=== PATIENT | male | born 1970 | race Caucasian/White ===

== ENCOUNTER 2023-01-07 14:02 | Inpatient (IN) | payer OTHER ==
[2023-01-07 14:29] VITALS: BMI 36.9
[2023-01-07] MEDS ORDERED: NALOXONE HCL (KLOXXADO) 8 MG SPRAY NS PRN (15:25)
[2023-01-07] MEDS ORDERED: NICOTINE POLACRILEX 2 MG GUM BUC PRN (15:25)
[2023-01-07] MEDS ORDERED: POLYETHYLENE GLYCOL (HEALTHYLAX) 3350 17 GM PACKET PO PRN (15:25)
[2023-01-07] MEDS ORDERED: BENZOCAINE/MENTHOL (CHLORASEPTIC ) LOZENGE MM PRN (15:25)
[2023-01-07] MEDS ORDERED: MAGNESIUM HYDROX 2400MG/30ML ORAL SUSPENSION 30 ML CUP PO PRN (15:25)
[2023-01-07] MEDS ORDERED: guaiFENesin 600 MG TABLET.ER (FP) PO PRN (15:25)
[2023-01-07] MEDS ORDERED: LOPERAMIDE HCL 2 MG CAPSULE PO PRN (15:25)
[2023-01-07] MEDS ORDERED: P-EPHED 60MG/TRIPROLIDI 2.5MG TABLET PO PRN (15:25)
[2023-01-07] MEDS ORDERED: BENZONATATE 200 MG CAPSULE PO PRN (15:25)
[2023-01-07] MEDS ORDERED: NALOXONE HCL 0.4 MG/ML VIAL IM PRN (15:25)
[2023-01-07] MEDS ORDERED: MAG HYDROX/AL HYDROX/SIMETH 30 ML UNIT-DOSE CUP PO PRN (15:25)
[2023-01-07] MEDS ORDERED: ACETAMINOPHEN 325 MG TABLET (FP) PO PRN (15:25)
[2023-01-07] MEDS ORDERED: SENNOSIDES 8.6MG TABLET (FP) PO PRN (16:56)
[2023-01-07] MEDS ORDERED: [UNRECOGNIZED DRUG - OTHER] PO SCH (17:00)
[2023-01-07] MEDS ORDERED: POLYETHYLENE GLYCOL PO SCH (17:00)
[2023-01-07] MEDS: INSULIN SLIDING SCALE (NOVOLOG) 1 VIAL SQ SCH ×2 (21:50→22:29)
[2023-01-07] MEDS ORDERED: TUBERCULIN PPD 5 TU/0.1ML VIAL ID ONE (22:28)
[2023-01-07] MEDS: THIAMINE HCL 100 MG TABLET (FP) PO SCH (22:29)
[2023-01-07] MEDS: MELATONIN 5 MG TABLETS PO PRN (22:29)
[2023-01-07] MEDS: ATORVASTATIN CA 40 MG TABLET (FP) PO SCH (22:30)
[2023-01-07] MEDS: GABAPENTIN 100 MG CAPSULE PO SCH (22:30)
[2023-01-07] MEDS: APIXABAN 5 MG TABLET PO SCH (22:30)
[2023-01-07] MEDS: AMOX TR/POT CLAV 875MG/125MG TABLETS (FP) PO SCH (22:30)
[2023-01-08 01:01] LABS: PH,URINE 5.5 (5.0-8.0); URINE APPEARANCE CLEAR; URINE BILIRUBIN NEGATIVE (NEGATIVE); URINE COLOR YELLOW; URINE GLUCOSE (UA) NEGATIVE (NEGATIVE); URINE KETONE NEGATIVE (NEGATIVE); URINE LEUK ESTERASE NEGATIVE (NEGATIVE); URINE NITRITE NEGATIVE (NEGATIVE); URINE PROTEIN NEGATIVE (NEGATIVE); URINE UROBILINOGEN 0.2 mg/dL (0.2-1.0)
[2023-01-08] MEDS: GABAPENTIN 100 MG CAPSULE PO SCH ×3 (06:03→21:46)
[2023-01-08] MEDS: INSULIN SLIDING SCALE (NOVOLOG) 1 VIAL SQ SCH ×4 (06:03→21:50)
[2023-01-08] MEDS: methaDONE HCL 40 MG DISPERSABLE TABLET PO SCH (07:58)
[2023-01-08] MEDS: APIXABAN 5 MG TABLET PO SCH ×2 (09:51→21:46)
[2023-01-08] MEDS: AMOX TR/POT CLAV 875MG/125MG TABLETS (FP) PO SCH ×2 (09:51→21:46)
[2023-01-08] MEDS: POLYETHYLENE GLYCOL (HEALTHYLAX) 3350 17 GM PACKET PO SCH (09:51)
[2023-01-08] MEDS: LOSARTAN POTASSIUM 25 MG TABLET PO SCH (09:51)
[2023-01-08] MEDS: metoPROLOL SUCCINATE 25 MG TAB.SR.24H (FP) PO SCH (09:51)
[2023-01-08] MEDS: PRENATAL VITAMINS W/ FOLIC ACID TABLET (FP) PO SCH (09:51)
[2023-01-08] MEDS: ASPIRIN 81 MG CHEWABLE TABLETS PO SCH (09:51)
[2023-01-08] MEDS ORDERED: INSULIN SLIDING SCALE (NOVOLOG) 1 VIAL SQ ONE (12:01)
[2023-01-08] MEDS: ATORVASTATIN CA 40 MG TABLET (FP) PO SCH (21:46)
[2023-01-08] MEDS: THIAMINE HCL 100 MG TABLET (FP) PO SCH (21:46)
[2023-01-09] MEDS: methaDONE HCL 40 MG DISPERSABLE TABLET PO SCH (06:02)
[2023-01-09] MEDS: GABAPENTIN 100 MG CAPSULE PO SCH ×3 (06:03→21:35)
[2023-01-09] MEDS: INSULIN SLIDING SCALE (NOVOLOG) 1 VIAL SQ SCH ×4 (06:04→21:37)
[2023-01-09] MEDS: LOSARTAN POTASSIUM 25 MG TABLET PO SCH (09:47)
[2023-01-09] MEDS: ASPIRIN 81 MG CHEWABLE TABLETS PO SCH (09:47)
[2023-01-09] MEDS: POLYETHYLENE GLYCOL (HEALTHYLAX) 3350 17 GM PACKET PO SCH (09:47)
[2023-01-09] MEDS: AMOX TR/POT CLAV 875MG/125MG TABLETS (FP) PO SCH ×2 (09:47→21:36)
[2023-01-09] MEDS: PRENATAL VITAMINS W/ FOLIC ACID TABLET (FP) PO SCH (09:47)
[2023-01-09] MEDS: APIXABAN 5 MG TABLET PO SCH ×2 (09:47→21:36)
[2023-01-09] MEDS: metoPROLOL SUCCINATE 25 MG TAB.SR.24H (FP) PO SCH (09:47)
[2023-01-09] MEDS: ATORVASTATIN CA 40 MG TABLET (FP) PO SCH (21:35)
[2023-01-09] MEDS: THIAMINE HCL 100 MG TABLET (FP) PO SCH (21:36)
[2023-01-10] MEDS: methaDONE HCL 40 MG DISPERSABLE TABLET PO SCH (05:46)
[2023-01-10] MEDS: GABAPENTIN 100 MG CAPSULE PO SCH ×3 (05:46→21:21)
[2023-01-10] MEDS: INSULIN SLIDING SCALE (NOVOLOG) 1 VIAL SQ SCH ×4 (07:10→21:23)
[2023-01-10] MEDS: LOSARTAN POTASSIUM 25 MG TABLET PO SCH (09:54)
[2023-01-10] MEDS: AMOX TR/POT CLAV 875MG/125MG TABLETS (FP) PO SCH ×2 (09:54→21:21)
[2023-01-10] MEDS: ASPIRIN 81 MG CHEWABLE TABLETS PO SCH (09:54)
[2023-01-10] MEDS: APIXABAN 5 MG TABLET PO SCH ×2 (09:54→21:21)
[2023-01-10] MEDS: metoPROLOL SUCCINATE 25 MG TAB.SR.24H (FP) PO SCH (09:54)
[2023-01-10] MEDS: PRENATAL VITAMINS W/ FOLIC ACID TABLET (FP) PO SCH (09:54)
[2023-01-10] MEDS: POLYETHYLENE GLYCOL (HEALTHYLAX) 3350 17 GM PACKET PO SCH (09:54)
[2023-01-10] MEDS ORDERED: INSULIN SLIDING SCALE (NOVOLOG) 1 VIAL SQ ONE (11:50)
[2023-01-10] MEDS: THIAMINE HCL 100 MG TABLET (FP) PO SCH (21:21)
[2023-01-10] MEDS: ATORVASTATIN CA 40 MG TABLET (FP) PO SCH (21:21)
[2023-01-10] MEDS: MELATONIN 5 MG TABLETS PO PRN (21:22)
[2023-01-10] MEDS: NICOTINE 10 MG CARTRIDGE (INHALER) IH PRN (21:23)
[2023-01-11] MEDS: methaDONE HCL 40 MG DISPERSABLE TABLET PO SCH (06:00)
[2023-01-11] MEDS: GABAPENTIN 100 MG CAPSULE PO SCH ×3 (06:01→21:26)
[2023-01-11] MEDS: INSULIN SLIDING SCALE (NOVOLOG) 1 VIAL SQ SCH ×4 (06:02→22:10)
[2023-01-11] MEDS: PRENATAL VITAMINS W/ FOLIC ACID TABLET (FP) PO SCH (10:05)
[2023-01-11] MEDS: LOSARTAN POTASSIUM 25 MG TABLET PO SCH (10:05)
[2023-01-11] MEDS: AMOX TR/POT CLAV 875MG/125MG TABLETS (FP) PO SCH ×2 (10:05→21:26)
[2023-01-11] MEDS: APIXABAN 5 MG TABLET PO SCH ×2 (10:06→21:26)
[2023-01-11] MEDS: metoPROLOL SUCCINATE 25 MG TAB.SR.24H (FP) PO SCH (10:06)
[2023-01-11] MEDS: POLYETHYLENE GLYCOL (HEALTHYLAX) 3350 17 GM PACKET PO SCH (10:06)
[2023-01-11] MEDS: ASPIRIN 81 MG CHEWABLE TABLETS PO SCH (10:06)
[2023-01-11] MEDS: NICOTINE 10 MG CARTRIDGE (INHALER) IH PRN (16:38)
[2023-01-11] MEDS: ATORVASTATIN CA 40 MG TABLET (FP) PO SCH (21:26)
[2023-01-11] MEDS: THIAMINE HCL 100 MG TABLET (FP) PO SCH (21:26)
[2023-01-11] MEDS: MELATONIN 5 MG TABLETS PO PRN (21:27)
[2023-01-12] MEDS: GABAPENTIN 100 MG CAPSULE PO SCH ×3 (05:51→21:35)
[2023-01-12] MEDS: methaDONE HCL 40 MG DISPERSABLE TABLET PO SCH (05:51)
[2023-01-12] MEDS: INSULIN SLIDING SCALE (NOVOLOG) 1 VIAL SQ SCH ×4 (06:06→21:39)
[2023-01-12] MEDS: NICOTINE 10 MG CARTRIDGE (INHALER) IH PRN ×2 (06:50→13:12)
[2023-01-12] MEDS: POLYETHYLENE GLYCOL (HEALTHYLAX) 3350 17 GM PACKET PO SCH (09:59)
[2023-01-12] MEDS: LOSARTAN POTASSIUM 25 MG TABLET PO SCH (09:59)
[2023-01-12] MEDS: PRENATAL VITAMINS W/ FOLIC ACID TABLET (FP) PO SCH (09:59)
[2023-01-12] MEDS: ASPIRIN 81 MG CHEWABLE TABLETS PO SCH (09:59)
[2023-01-12] MEDS: metoPROLOL SUCCINATE 25 MG TAB.SR.24H (FP) PO SCH (09:59)
[2023-01-12] MEDS: APIXABAN 5 MG TABLET PO SCH ×2 (09:59→21:35)
[2023-01-12] MEDS: AMOX TR/POT CLAV 875MG/125MG TABLETS (FP) PO SCH ×2 (09:59→21:35)
[2023-01-12] MEDS ORDERED: INSULIN SLIDING SCALE (NOVOLOG) 1 VIAL SQ ONE (11:48)
[2023-01-12] MEDS: ATORVASTATIN CA 40 MG TABLET (FP) PO SCH (21:35)
[2023-01-12] MEDS: THIAMINE HCL 100 MG TABLET (FP) PO SCH (21:35)
[2023-01-12] MEDS: MELATONIN 5 MG TABLETS PO PRN (21:35)
[2023-01-13] MEDS: GABAPENTIN 100 MG CAPSULE PO SCH ×3 (06:00→21:16)
[2023-01-13] MEDS: methaDONE HCL 40 MG DISPERSABLE TABLET PO SCH (06:00)
[2023-01-13] MEDS: INSULIN SLIDING SCALE (NOVOLOG) 1 VIAL SQ SCH ×4 (06:03→21:19)
[2023-01-13] MEDS: NICOTINE 10 MG CARTRIDGE (INHALER) IH PRN ×3 (06:05→21:27)
[2023-01-13] MEDS: APIXABAN 5 MG TABLET PO SCH ×2 (09:44→21:16)
[2023-01-13] MEDS: ASPIRIN 81 MG CHEWABLE TABLETS PO SCH (09:44)
[2023-01-13] MEDS: PRENATAL VITAMINS W/ FOLIC ACID TABLET (FP) PO SCH (09:44)
[2023-01-13] MEDS: AMOX TR/POT CLAV 875MG/125MG TABLETS (FP) PO SCH ×2 (09:44→21:16)
[2023-01-13] MEDS: LOSARTAN POTASSIUM 25 MG TABLET PO SCH (09:44)
[2023-01-13] MEDS: metoPROLOL SUCCINATE 25 MG TAB.SR.24H (FP) PO SCH (09:44)
[2023-01-13] MEDS: POLYETHYLENE GLYCOL (HEALTHYLAX) 3350 17 GM PACKET PO SCH (09:44)
[2023-01-13] MEDS ORDERED: INSULIN SLIDING SCALE (NOVOLOG) 1 VIAL SQ ONE (11:47)
[2023-01-13] MEDS: MELATONIN 5 MG TABLETS PO PRN (21:16)
[2023-01-13] MEDS: THIAMINE HCL 100 MG TABLET (FP) PO SCH (21:16)
[2023-01-13] MEDS: ATORVASTATIN CA 40 MG TABLET (FP) PO SCH (21:16)
[2023-01-14] MEDS: methaDONE HCL 40 MG DISPERSABLE TABLET PO SCH (05:48)
[2023-01-14] MEDS: GABAPENTIN 100 MG CAPSULE PO SCH ×3 (05:48→22:00)
[2023-01-14] MEDS: INSULIN SLIDING SCALE (NOVOLOG) 1 VIAL SQ SCH ×7 (07:10→22:12)
[2023-01-14] MEDS: AMOX TR/POT CLAV 875MG/125MG TABLETS (FP) PO SCH ×2 (10:00→21:59)
[2023-01-14] MEDS: metoPROLOL SUCCINATE 25 MG TAB.SR.24H (FP) PO SCH (10:00)
[2023-01-14] MEDS: LOSARTAN POTASSIUM 25 MG TABLET PO SCH (10:01)
[2023-01-14] MEDS: APIXABAN 5 MG TABLET PO SCH ×2 (10:01→21:59)
[2023-01-14] MEDS: POLYETHYLENE GLYCOL (HEALTHYLAX) 3350 17 GM PACKET PO SCH (10:01)
[2023-01-14] MEDS: ASPIRIN 81 MG CHEWABLE TABLETS PO SCH (10:01)
[2023-01-14] MEDS: PRENATAL VITAMINS W/ FOLIC ACID TABLET (FP) PO SCH (10:01)
[2023-01-14] MEDS ORDERED: ONDANSETRON *ODT* 4 MG TABLET SL PRN (16:00)
[2023-01-14] MEDS: ATORVASTATIN CA 40 MG TABLET (FP) PO SCH (22:00)
[2023-01-14] MEDS: THIAMINE HCL 100 MG TABLET (FP) PO SCH (22:00)
[2023-01-15] MEDS: methaDONE HCL 40 MG DISPERSABLE TABLET PO SCH (05:42)
[2023-01-15] MEDS: GABAPENTIN 100 MG CAPSULE PO SCH ×3 (05:42→21:36)
[2023-01-15] MEDS: NICOTINE 10 MG CARTRIDGE (INHALER) IH PRN (06:39)
[2023-01-15] MEDS: INSULIN SLIDING SCALE (NOVOLOG) 1 VIAL SQ SCH ×4 (07:20→21:38)
[2023-01-15] MEDS: PRENATAL VITAMINS W/ FOLIC ACID TABLET (FP) PO SCH (09:39)
[2023-01-15] MEDS: POLYETHYLENE GLYCOL (HEALTHYLAX) 3350 17 GM PACKET PO SCH (09:39)
[2023-01-15] MEDS: ASPIRIN 81 MG CHEWABLE TABLETS PO SCH (09:40)
[2023-01-15] MEDS: metoPROLOL SUCCINATE 25 MG TAB.SR.24H (FP) PO SCH (09:40)
[2023-01-15] MEDS: AMOX TR/POT CLAV 875MG/125MG TABLETS (FP) PO SCH ×2 (09:40→21:36)
[2023-01-15] MEDS: LOSARTAN POTASSIUM 25 MG TABLET PO SCH (09:40)
[2023-01-15] MEDS: APIXABAN 5 MG TABLET PO SCH ×2 (09:40→21:36)
[2023-01-15 11:24] LABS: BASO % 1.1 % (0-2.0); EOS % 3.2 % (0-4.5); HEMATOCRIT 39.5 % (35.4-49); HEMOGLOBIN 13.6 GM/dL (11.7-16.9); LYMPH % 28.7 % (8-40); MCH 28.7 pg (25.7-33.7); MCHC 34.5 g/dl (32.0-35.9); MEAN CELL VOLUME 83.1 fl (80-96); PLATELET COUNT 310 10^3/uL (134-434); RBC 4.75 M/mm3 (4.00-5.60); RDW 14.5 % (11.9-15.9); WHITE BLOOD COUNT 10.4 K/mm3 (4.0-10.0)
[2023-01-15 11:27] LABS: ALBUMIN 3.3 g/dl (3.4-5.0); BLOOD UREA NITROGEN 31.1 mg/dL (7-18)
[2023-01-15 11:30] LABS: CREATININE 1.1 mg/dL (0.55-1.3)
[2023-01-15 11:32] LABS: BILIRUBIN,TOTAL 0.6 mg/dL (0.2-1); TOT PROT 8.1 g/dl (6.4-8.2)
[2023-01-15] MEDS ORDERED: INSULIN SLIDING SCALE (NOVOLOG) 1 VIAL SQ ONE (12:00)
[2023-01-15] MEDS: ATORVASTATIN CA 40 MG TABLET (FP) PO SCH (21:36)
[2023-01-15] MEDS: THIAMINE HCL 100 MG TABLET (FP) PO SCH (21:36)
[2023-01-16] MEDS: methaDONE HCL 40 MG DISPERSABLE TABLET PO SCH (06:12)
[2023-01-16] MEDS: INSULIN SLIDING SCALE (NOVOLOG) 1 VIAL SQ SCH ×4 (06:12→21:57)
[2023-01-16] MEDS: NICOTINE 10 MG CARTRIDGE (INHALER) IH PRN ×3 (06:14→21:53)
[2023-01-16] MEDS: GABAPENTIN 100 MG CAPSULE PO SCH ×3 (06:14→21:53)
[2023-01-16] MEDS: AMOX TR/POT CLAV 875MG/125MG TABLETS (FP) PO SCH ×2 (10:01→21:53)
[2023-01-16] MEDS: APIXABAN 5 MG TABLET PO SCH ×2 (10:02→21:53)
[2023-01-16] MEDS: PRENATAL VITAMINS W/ FOLIC ACID TABLET (FP) PO SCH (10:02)
[2023-01-16] MEDS: metoPROLOL SUCCINATE 25 MG TAB.SR.24H (FP) PO SCH (10:02)
[2023-01-16] MEDS: ASPIRIN 81 MG CHEWABLE TABLETS PO SCH (10:02)
[2023-01-16] MEDS: LOSARTAN POTASSIUM 25 MG TABLET PO SCH (10:02)
[2023-01-16] MEDS: POLYETHYLENE GLYCOL (HEALTHYLAX) 3350 17 GM PACKET PO SCH (10:03)
[2023-01-16] MEDS: THIAMINE HCL 100 MG TABLET (FP) PO SCH (21:53)
[2023-01-16] MEDS: ATORVASTATIN CA 40 MG TABLET (FP) PO SCH (21:53)
[2023-01-16] MEDS: SUVOREXANT 10 MG TABLET PO PRN (21:54)
[2023-01-17] MEDS: GABAPENTIN 100 MG CAPSULE PO SCH ×3 (05:54→21:48)
[2023-01-17] MEDS: methaDONE HCL 40 MG DISPERSABLE TABLET PO SCH (05:55)
[2023-01-17] MEDS: INSULIN SLIDING SCALE (NOVOLOG) 1 VIAL SQ SCH ×4 (07:07→21:53)
[2023-01-17] MEDS ORDERED: CALAMINE 8% TOPICAL LOTION 177 ML BOTTLE TP PRN (10:07)
[2023-01-17] MEDS: PRENATAL VITAMINS W/ FOLIC ACID TABLET (FP) PO SCH (10:14)
[2023-01-17] MEDS: ASPIRIN 81 MG CHEWABLE TABLETS PO SCH (10:14)
[2023-01-17] MEDS: LOSARTAN POTASSIUM 25 MG TABLET PO SCH (10:14)
[2023-01-17] MEDS: AMOX TR/POT CLAV 875MG/125MG TABLETS (FP) PO SCH (10:14)
[2023-01-17] MEDS: POLYETHYLENE GLYCOL (HEALTHYLAX) 3350 17 GM PACKET PO SCH (10:14)
[2023-01-17] MEDS: metoPROLOL SUCCINATE 25 MG TAB.SR.24H (FP) PO SCH (10:14)
[2023-01-17] MEDS: APIXABAN 5 MG TABLET PO SCH ×2 (10:14→21:48)
[2023-01-17] MEDS: NICOTINE 10 MG CARTRIDGE (INHALER) IH PRN ×2 (10:18→16:56)
[2023-01-17] MEDS ORDERED: INSULIN SLIDING SCALE (NOVOLOG) 1 VIAL SQ ONE (11:31)
[2023-01-17] MEDS: ATORVASTATIN CA 40 MG TABLET (FP) PO SCH (21:48)
[2023-01-17] MEDS: THIAMINE HCL 100 MG TABLET (FP) PO SCH (21:48)
[2023-01-17] MEDS: BACITRACIN ZINC 15 GM TUBE TOPICAL OINTMENT TP SCH (21:49)
[2023-01-17] MEDS: SUVOREXANT 10 MG TABLET PO PRN (21:49)
[2023-01-18] MEDS: methaDONE HCL 40 MG DISPERSABLE TABLET PO SCH (06:04)
[2023-01-18] MEDS: GABAPENTIN 100 MG CAPSULE PO SCH ×3 (06:06→21:55)
[2023-01-18] MEDS: INSULIN SLIDING SCALE (NOVOLOG) 1 VIAL SQ SCH ×4 (06:59→21:57)
[2023-01-18 09:10] VITALS: RESP 18
[2023-01-18] MEDS: PRENATAL VITAMINS W/ FOLIC ACID TABLET (FP) PO SCH (10:05)
[2023-01-18] MEDS: POLYETHYLENE GLYCOL (HEALTHYLAX) 3350 17 GM PACKET PO SCH (10:05)
[2023-01-18] MEDS: APIXABAN 5 MG TABLET PO SCH ×2 (10:06→21:55)
[2023-01-18] MEDS: LOSARTAN POTASSIUM 25 MG TABLET PO SCH (10:06)
[2023-01-18] MEDS: BACITRACIN ZINC 15 GM TUBE TOPICAL OINTMENT TP SCH ×2 (10:06→21:58)
[2023-01-18] MEDS: metoPROLOL SUCCINATE 25 MG TAB.SR.24H (FP) PO SCH (10:06)
[2023-01-18] MEDS: ASPIRIN 81 MG CHEWABLE TABLETS PO SCH (10:06)
[2023-01-18] MEDS: NICOTINE 10 MG CARTRIDGE (INHALER) IH PRN ×2 (11:52→16:53)
[2023-01-18] MEDS: THIAMINE HCL 100 MG TABLET (FP) PO SCH (21:55)
[2023-01-18] MEDS: ATORVASTATIN CA 40 MG TABLET (FP) PO SCH (21:55)
[2023-01-19] MEDS: methaDONE HCL 40 MG DISPERSABLE TABLET PO SCH (05:44)
[2023-01-19] MEDS: NICOTINE 10 MG CARTRIDGE (INHALER) IH PRN ×2 (05:44→10:26)
[2023-01-19] MEDS: GABAPENTIN 100 MG CAPSULE PO SCH ×3 (05:44→22:07)
[2023-01-19] MEDS: INSULIN SLIDING SCALE (NOVOLOG) 1 VIAL SQ SCH ×4 (06:25→22:08)
[2023-01-19] MEDS: PRENATAL VITAMINS W/ FOLIC ACID TABLET (FP) PO SCH (10:19)
[2023-01-19] MEDS: metoPROLOL SUCCINATE 25 MG TAB.SR.24H (FP) PO SCH (10:19)
[2023-01-19] MEDS: BACITRACIN ZINC 15 GM TUBE TOPICAL OINTMENT TP SCH ×2 (10:19→22:07)
[2023-01-19] MEDS: LOSARTAN POTASSIUM 25 MG TABLET PO SCH (10:19)
[2023-01-19] MEDS: APIXABAN 5 MG TABLET PO SCH ×2 (10:20→22:07)
[2023-01-19] MEDS: ASPIRIN 81 MG CHEWABLE TABLETS PO SCH (10:20)
[2023-01-19] MEDS: POLYETHYLENE GLYCOL (HEALTHYLAX) 3350 17 GM PACKET PO SCH (10:21)
[2023-01-19] MEDS: ATORVASTATIN CA 40 MG TABLET (FP) PO SCH (22:07)
[2023-01-19] MEDS: THIAMINE HCL 100 MG TABLET (FP) PO SCH (22:07)
[2023-01-20] MEDS: methaDONE HCL 40 MG DISPERSABLE TABLET PO SCH (05:42)
[2023-01-20] MEDS: NICOTINE 10 MG CARTRIDGE (INHALER) IH PRN ×3 (05:47→21:44)
[2023-01-20] MEDS: GABAPENTIN 100 MG CAPSULE PO SCH ×3 (05:47→21:39)
[2023-01-20] MEDS: INSULIN SLIDING SCALE (NOVOLOG) 1 VIAL SQ SCH ×4 (06:29→21:43)
[2023-01-20] MEDS: PRENATAL VITAMINS W/ FOLIC ACID TABLET (FP) PO SCH (10:18)
[2023-01-20] MEDS: metoPROLOL SUCCINATE 25 MG TAB.SR.24H (FP) PO SCH (10:19)
[2023-01-20] MEDS: ASPIRIN 81 MG CHEWABLE TABLETS PO SCH (10:19)
[2023-01-20] MEDS: LOSARTAN POTASSIUM 25 MG TABLET PO SCH (10:19)
[2023-01-20] MEDS: POLYETHYLENE GLYCOL (HEALTHYLAX) 3350 17 GM PACKET PO SCH (10:19)
[2023-01-20] MEDS: BACITRACIN ZINC 15 GM TUBE TOPICAL OINTMENT TP SCH ×2 (10:20→21:40)
[2023-01-20] MEDS: APIXABAN 5 MG TABLET PO SCH ×2 (10:20→21:39)
[2023-01-20] MEDS: ATORVASTATIN CA 40 MG TABLET (FP) PO SCH (21:39)
[2023-01-20] MEDS: THIAMINE HCL 100 MG TABLET (FP) PO SCH (21:40)
[2023-01-20] MEDS: SUVOREXANT 10 MG TABLET PO PRN (21:42)
[2023-01-21] MEDS: GABAPENTIN 100 MG CAPSULE PO SCH ×3 (06:10→21:36)
[2023-01-21] MEDS: NICOTINE 10 MG CARTRIDGE (INHALER) IH PRN ×4 (06:10→21:38)
[2023-01-21] MEDS: methaDONE HCL 40 MG DISPERSABLE TABLET PO SCH (06:11)
[2023-01-21] MEDS: INSULIN SLIDING SCALE (NOVOLOG) 1 VIAL SQ SCH ×4 (06:15→21:38)
[2023-01-21] MEDS: POLYETHYLENE GLYCOL (HEALTHYLAX) 3350 17 GM PACKET PO SCH (10:01)
[2023-01-21] MEDS: ASPIRIN 81 MG CHEWABLE TABLETS PO SCH (10:01)
[2023-01-21] MEDS: PRENATAL VITAMINS W/ FOLIC ACID TABLET (FP) PO SCH (10:01)
[2023-01-21] MEDS: APIXABAN 5 MG TABLET PO SCH ×2 (10:01→21:36)
[2023-01-21] MEDS: metoPROLOL SUCCINATE 25 MG TAB.SR.24H (FP) PO SCH (10:01)
[2023-01-21] MEDS: LOSARTAN POTASSIUM 25 MG TABLET PO SCH (10:02)
[2023-01-21] MEDS: BACITRACIN ZINC 15 GM TUBE TOPICAL OINTMENT TP SCH ×2 (10:02→21:38)
[2023-01-21] MEDS: THIAMINE HCL 100 MG TABLET (FP) PO SCH (21:36)
[2023-01-21] MEDS: ATORVASTATIN CA 40 MG TABLET (FP) PO SCH (21:36)
[2023-01-22] MEDS: GABAPENTIN 100 MG CAPSULE PO SCH ×3 (06:00→21:27)
[2023-01-22] MEDS: NICOTINE 10 MG CARTRIDGE (INHALER) IH PRN ×4 (06:00→21:31)
[2023-01-22] MEDS: methaDONE HCL 40 MG DISPERSABLE TABLET PO SCH (06:00)
[2023-01-22] MEDS: INSULIN SLIDING SCALE (NOVOLOG) 1 VIAL SQ SCH ×4 (06:04→21:30)
[2023-01-22] MEDS ORDERED: methaDONE HCL 10 MG TABLET PO SCH (10:15)
[2023-01-22] MEDS: POLYETHYLENE GLYCOL (HEALTHYLAX) 3350 17 GM PACKET PO SCH (10:25)
[2023-01-22] MEDS: PRENATAL VITAMINS W/ FOLIC ACID TABLET (FP) PO SCH (10:25)
[2023-01-22] MEDS: LOSARTAN POTASSIUM 25 MG TABLET PO SCH (10:25)
[2023-01-22] MEDS: ASPIRIN 81 MG CHEWABLE TABLETS PO SCH (10:25)
[2023-01-22] MEDS: metoPROLOL SUCCINATE 25 MG TAB.SR.24H (FP) PO SCH (10:25)
[2023-01-22] MEDS: APIXABAN 5 MG TABLET PO SCH ×2 (10:25→21:27)
[2023-01-22] MEDS: BACITRACIN ZINC 15 GM TUBE TOPICAL OINTMENT TP SCH ×2 (10:26→21:30)
[2023-01-22] MEDS: THIAMINE HCL 100 MG TABLET (FP) PO SCH (21:26)
[2023-01-22] MEDS: ATORVASTATIN CA 40 MG TABLET (FP) PO SCH (21:27)
[2023-01-22] MEDS: SUVOREXANT 15 MG TABLET PO PRN (21:28)
[2023-01-23] MEDS: GABAPENTIN 100 MG CAPSULE PO SCH ×3 (06:11→21:32)
[2023-01-23] MEDS: NICOTINE 10 MG CARTRIDGE (INHALER) IH PRN ×3 (06:11→21:35)
[2023-01-23] MEDS: methaDONE HCL 40 MG DISPERSABLE TABLET PO SCH (06:12)
[2023-01-23] MEDS: INSULIN SLIDING SCALE (NOVOLOG) 1 VIAL SQ SCH ×4 (06:15→21:35)
[2023-01-23] MEDS ORDERED: DOCUSATE SODIUM 100 MG CAPSULE (FP) PO PRN (09:20)
[2023-01-23] MEDS ORDERED: PANTOPRAZOLE 20 MG TABLET PO PRN (09:20)
[2023-01-23] MEDS: PRENATAL VITAMINS W/ FOLIC ACID TABLET (FP) PO SCH (10:03)
[2023-01-23] MEDS: LOSARTAN POTASSIUM 25 MG TABLET PO SCH (10:03)
[2023-01-23] MEDS: APIXABAN 5 MG TABLET PO SCH ×2 (10:03→21:32)
[2023-01-23] MEDS: ASPIRIN 81 MG CHEWABLE TABLETS PO SCH (10:03)
[2023-01-23] MEDS: metoPROLOL SUCCINATE 25 MG TAB.SR.24H (FP) PO SCH (10:04)
[2023-01-23] MEDS: POLYETHYLENE GLYCOL (HEALTHYLAX) 3350 17 GM PACKET PO SCH (10:04)
[2023-01-23] MEDS: COLLOIDAL OATMEAL 1 BAR EACH TP PRN (10:32)
[2023-01-23] MEDS: BACITRACIN ZINC 15 GM TUBE TOPICAL OINTMENT TP SCH ×2 (10:34→21:51)
[2023-01-23] MEDS ORDERED: INSULIN SLIDING SCALE (NOVOLOG) 1 VIAL SQ ONE (11:44)
[2023-01-23] MEDS: ATORVASTATIN CA 40 MG TABLET (FP) PO SCH (21:32)
[2023-01-23] MEDS: THIAMINE HCL 100 MG TABLET (FP) PO SCH (21:32)
[2023-01-23] MEDS: SUVOREXANT 15 MG TABLET PO PRN (21:33)
[2023-01-24] MEDS: methaDONE HCL 40 MG DISPERSABLE TABLET PO SCH (05:50)
[2023-01-24] MEDS: NICOTINE 10 MG CARTRIDGE (INHALER) IH PRN ×3 (05:50→21:38)
[2023-01-24] MEDS: INSULIN SLIDING SCALE (NOVOLOG) 1 VIAL SQ SCH ×4 (07:11→21:38)
[2023-01-24] MEDS: GABAPENTIN 100 MG CAPSULE PO SCH ×3 (07:11→21:37)
[2023-01-24] MEDS: PRENATAL VITAMINS W/ FOLIC ACID TABLET (FP) PO SCH (10:24)
[2023-01-24] MEDS: APIXABAN 5 MG TABLET PO SCH ×2 (10:25→21:37)
[2023-01-24] MEDS: ASPIRIN 81 MG CHEWABLE TABLETS PO SCH (10:25)
[2023-01-24] MEDS: metoPROLOL SUCCINATE 25 MG TAB.SR.24H (FP) PO SCH (10:25)
[2023-01-24] MEDS: LOSARTAN POTASSIUM 25 MG TABLET PO SCH (10:25)
[2023-01-24] MEDS: POLYETHYLENE GLYCOL (HEALTHYLAX) 3350 17 GM PACKET PO SCH (10:26)
[2023-01-24] MEDS: BACITRACIN ZINC 15 GM TUBE TOPICAL OINTMENT TP SCH ×2 (10:30→21:38)
[2023-01-24] MEDS: SUVOREXANT 15 MG TABLET PO PRN (21:36)
[2023-01-24] MEDS: ATORVASTATIN CA 40 MG TABLET (FP) PO SCH (21:37)
[2023-01-24] MEDS: THIAMINE HCL 100 MG TABLET (FP) PO SCH (21:37)
[2023-01-25] MEDS: GABAPENTIN 100 MG CAPSULE PO SCH ×3 (05:59→21:22)
[2023-01-25] MEDS: methaDONE HCL 40 MG DISPERSABLE TABLET PO SCH (06:00)
[2023-01-25] MEDS: INSULIN SLIDING SCALE (NOVOLOG) 1 VIAL SQ SCH ×4 (06:01→21:25)
[2023-01-25] MEDS: APIXABAN 5 MG TABLET PO SCH ×2 (09:55→21:22)
[2023-01-25] MEDS: LOSARTAN POTASSIUM 25 MG TABLET PO SCH (09:55)
[2023-01-25] MEDS: PRENATAL VITAMINS W/ FOLIC ACID TABLET (FP) PO SCH (09:55)
[2023-01-25] MEDS: metoPROLOL SUCCINATE 25 MG TAB.SR.24H (FP) PO SCH (09:55)
[2023-01-25] MEDS: ASPIRIN 81 MG CHEWABLE TABLETS PO SCH (09:55)
[2023-01-25] MEDS: POLYETHYLENE GLYCOL (HEALTHYLAX) 3350 17 GM PACKET PO SCH (09:56)
[2023-01-25] MEDS: BACITRACIN ZINC 15 GM TUBE TOPICAL OINTMENT TP SCH ×2 (09:56→21:23)
[2023-01-25] MEDS: NICOTINE 10 MG CARTRIDGE (INHALER) IH PRN (16:39)
[2023-01-25] MEDS: SUVOREXANT 15 MG TABLET PO PRN (21:19)
[2023-01-25] MEDS: ATORVASTATIN CA 40 MG TABLET (FP) PO SCH (21:22)
[2023-01-25] MEDS: THIAMINE HCL 100 MG TABLET (FP) PO SCH (21:22)
[2023-01-26] MEDS: GABAPENTIN 100 MG CAPSULE PO SCH ×3 (05:46→21:36)
[2023-01-26] MEDS: methaDONE HCL 40 MG DISPERSABLE TABLET PO SCH (05:46)
[2023-01-26] MEDS: NICOTINE 10 MG CARTRIDGE (INHALER) IH PRN ×3 (05:49→16:20)
[2023-01-26] MEDS: INSULIN SLIDING SCALE (NOVOLOG) 1 VIAL SQ SCH ×4 (06:25→21:37)
[2023-01-26] MEDS: metoPROLOL SUCCINATE 25 MG TAB.SR.24H (FP) PO SCH (09:50)
[2023-01-26] MEDS: PRENATAL VITAMINS W/ FOLIC ACID TABLET (FP) PO SCH (09:50)
[2023-01-26] MEDS: BACITRACIN ZINC 15 GM TUBE TOPICAL OINTMENT TP SCH ×2 (09:50→21:38)
[2023-01-26] MEDS: LOSARTAN POTASSIUM 25 MG TABLET PO SCH (09:50)
[2023-01-26] MEDS: POLYETHYLENE GLYCOL (HEALTHYLAX) 3350 17 GM PACKET PO SCH (09:50)
[2023-01-26] MEDS: APIXABAN 5 MG TABLET PO SCH ×2 (09:50→21:36)
[2023-01-26] MEDS: ASPIRIN 81 MG CHEWABLE TABLETS PO SCH (09:50)
[2023-01-26] MEDS ORDERED: INSULIN SLIDING SCALE (NOVOLOG) 1 VIAL SQ ONE (11:28)
[2023-01-26] MEDS: THIAMINE HCL 100 MG TABLET (FP) PO SCH (21:34)
[2023-01-26] MEDS: ATORVASTATIN CA 40 MG TABLET (FP) PO SCH (21:36)
[2023-01-27] MEDS: GABAPENTIN 100 MG CAPSULE PO SCH ×3 (05:48→23:04)
[2023-01-27] MEDS: methaDONE HCL 40 MG DISPERSABLE TABLET PO SCH (05:49)
[2023-01-27] MEDS: NICOTINE 10 MG CARTRIDGE (INHALER) IH PRN ×3 (05:50→16:37)
[2023-01-27] MEDS: INSULIN SLIDING SCALE (NOVOLOG) 1 VIAL SQ SCH ×4 (06:14→23:04)
[2023-01-27] MEDS: metoPROLOL SUCCINATE 25 MG TAB.SR.24H (FP) PO SCH (09:56)
[2023-01-27] MEDS: ASPIRIN 81 MG CHEWABLE TABLETS PO SCH (09:56)
[2023-01-27] MEDS: PRENATAL VITAMINS W/ FOLIC ACID TABLET (FP) PO SCH (09:56)
[2023-01-27] MEDS: POLYETHYLENE GLYCOL (HEALTHYLAX) 3350 17 GM PACKET PO SCH (09:56)
[2023-01-27] MEDS: BACITRACIN ZINC 15 GM TUBE TOPICAL OINTMENT TP SCH ×2 (09:56→23:03)
[2023-01-27] MEDS: LOSARTAN POTASSIUM 25 MG TABLET PO SCH (09:56)
[2023-01-27] MEDS: APIXABAN 5 MG TABLET PO SCH ×2 (09:56→23:03)
[2023-01-27] MEDS: COLLOIDAL OATMEAL 1 BAR EACH TP PRN (09:59)
[2023-01-27] MEDS ORDERED: INSULIN SLIDING SCALE (NOVOLOG) 1 VIAL SQ ONE (11:41)
[2023-01-27] MEDS: ATORVASTATIN CA 40 MG TABLET (FP) PO SCH (23:04)
[2023-01-27] MEDS: THIAMINE HCL 100 MG TABLET (FP) PO SCH (23:04)
[2023-01-28] MEDS: GABAPENTIN 100 MG CAPSULE PO SCH (05:40)
[2023-01-28] MEDS: methaDONE HCL 40 MG DISPERSABLE TABLET PO SCH (05:40)
[2023-01-28 07:04] VITALS: BP 114/64; PULSE 79; TEMP 97.3
[2023-01-28] MEDS: INSULIN SLIDING SCALE (NOVOLOG) 1 VIAL SQ SCH (07:10)
== END 2023-01-28 08:16 | disposition home or self-care (01) | DRG 772 ==
LOC: YASAS 14:02 → Y3W 20:09
PROVIDERS: ADMIT Allergy & Immunology; ATTEND Psychiatry & Neurology Pain Medicine
PROC: HZ42ZZZ Group Counseling for Substance Abuse Treatment, Cognitive-Behavioral (ICD-10-PCS; principal; 2023-01-07)
DX: F14.20 Cocaine dependence, uncomplicated (principal); F11.20 Opioid dependence, uncomplicated; F17.210 Nicotine dependence, cigarettes, uncomplicated; E11.9 Type 2 diabetes mellitus without complications; Z79.84 Long term (current) use of oral hypoglycemic drugs; K59.00 Constipation, unspecified; L85.3 Xerosis cutis; R21 Rash and other nonspecific skin eruption; Z86.718 Personal history of other venous thrombosis and embolism; Z79.01 Long term (current) use of anticoagulants; Z99.89 Dependence on other enabling machines and devices; Z86.19 Personal history of other infectious and parasitic diseases
CPT/HCPCS: 36415; 80053; 81003; 82962; 85025; 93005; 93010; C9803-CS; U0003; U0005

== ENCOUNTER 2023-03-22 17:30 | Inpatient (IN) | payer OTHER ==
[2023-03-22 18:37] VITALS: BMI 37.2
[2023-03-22] MEDS ORDERED: COLLOIDAL OATMEAL 1 BAR EACH TP PRN (21:48)
[2023-03-22] MEDS ORDERED: NALOXONE HCL (KLOXXADO) 8 MG SPRAY NS PRN (21:48)
[2023-03-22] MEDS ORDERED: guaiFENesin 600 MG TABLET.ER (FP) PO PRN (21:48)
[2023-03-22] MEDS ORDERED: POLYETHYLENE GLYCOL (HEALTHYLAX) 3350 17 GM PACKET PO PRN (21:48)
[2023-03-22] MEDS ORDERED: hydrOXYzine PAMOATE 25 MG CAPSULE (FP) PO PRN (21:48)
[2023-03-22] MEDS ORDERED: AMMONIUM LACTATE 12% LOTION 225 GM BOTTLE TP PRN (21:48)
[2023-03-22] MEDS ORDERED: ACETAMINOPHEN 325 MG TABLET (FP) PO PRN (21:48)
[2023-03-22] MEDS ORDERED: MAGNESIUM HYDROX 2400MG/30ML ORAL SUSPENSION 30 ML CUP PO PRN (21:48)
[2023-03-22] MEDS ORDERED: NALOXONE HCL 0.4 MG/ML VIAL IM PRN (21:48)
[2023-03-22] MEDS ORDERED: LOPERAMIDE HCL 2 MG CAPSULE PO PRN (21:48)
[2023-03-22] MEDS ORDERED: NICOTINE POLACRILEX 2 MG GUM BUC PRN (21:48)
[2023-03-22] MEDS ORDERED: MAG HYDROX/AL HYDROX/SIMETH 30 ML UNIT-DOSE CUP PO PRN (21:48)
[2023-03-22] MEDS ORDERED: BENZOCAINE/MENTHOL (CHLORASEPTIC ) LOZENGE MM PRN (21:48)
[2023-03-22] MEDS ORDERED: BENZONATATE 200 MG CAPSULE PO PRN (21:48)
[2023-03-22] MEDS ORDERED: MELATONIN 5 MG TABLETS ONE (23:44)
[2023-03-22] MEDS: THIAMINE HCL 100 MG TABLET (FP) PO SCH (23:52)
[2023-03-22] MEDS: APIXABAN 5 MG TABLET PO SCH (23:52)
[2023-03-22] MEDS: MELATONIN 5 MG TABLETS PO SCH (23:53)
[2023-03-23] MEDS: PRENATAL VITAMINS W/ FOLIC ACID TABLET (FP) PO SCH (10:19)
[2023-03-23] MEDS: APIXABAN 5 MG TABLET PO SCH ×2 (10:19→22:50)
[2023-03-23] MEDS: NICOTINE 14 MG/24 HOURS TOPICAL PATCH TD SCH (10:19)
[2023-03-23] MEDS ORDERED: methaDONE HCL 40 MG DISPERSABLE TABLET PO ONE (10:30)
[2023-03-23 10:54] LABS: POTASSIUM 4.1 mmol/L (3.5-5.1)
[2023-03-23 11:02] LABS: HEMATOCRIT 39.9 % (35.4-49); MCH 27.7 pg (25.7-33.7); MCHC 32.6 g/dl (32.0-35.9); MEAN CELL VOLUME 85.1 fl (80-96); MEAN PLT VOLUME 8.7 fl (7.5-11.1); PLATELET COUNT 257 10^3/uL (134-434); RBC 4.68 M/mm3 (4.00-5.60); WHITE BLOOD COUNT 7.8 K/mm3 (4.0-10.0)
[2023-03-23 11:07] LABS: CALCIUM 8.6 mg/dL (8.5-10.1)
[2023-03-23 11:08] LABS: ALBUMIN 3.2 g/dl (3.4-5.0); BLOOD UREA NITROGEN 13.9 mg/dL (7-18)
[2023-03-23 11:11] LABS: CREATININE 1.2 mg/dL (0.55-1.3)
[2023-03-23 11:12] LABS: BILIRUBIN,TOTAL 0.8 mg/dL (0.2-1); TOT PROT 7.7 g/dl (6.4-8.2)
[2023-03-23 12:58] LABS: SYPHILIS W/ RPR CONF REACTIVE (NONREACTIVE)
[2023-03-23] MEDS: MELATONIN 5 MG TABLETS PO SCH (22:50)
[2023-03-23] MEDS: THIAMINE HCL 100 MG TABLET (FP) PO SCH (22:50)
[2023-03-24] MEDS: methaDONE HCL 40 MG DISPERSABLE TABLET PO SCH (05:39)
[2023-03-24] MEDS: PRENATAL VITAMINS W/ FOLIC ACID TABLET (FP) PO SCH (09:54)
[2023-03-24] MEDS: APIXABAN 5 MG TABLET PO SCH ×2 (09:54→22:55)
[2023-03-24] MEDS: NICOTINE 14 MG/24 HOURS TOPICAL PATCH TD SCH (10:14)
[2023-03-24] MEDS: MELATONIN 5 MG TABLETS PO SCH (22:50)
[2023-03-24] MEDS: THIAMINE HCL 100 MG TABLET (FP) PO SCH (22:50)
[2023-03-25] MEDS: methaDONE HCL 40 MG DISPERSABLE TABLET PO SCH (05:49)
[2023-03-25] MEDS: PRENATAL VITAMINS W/ FOLIC ACID TABLET (FP) PO SCH (10:01)
[2023-03-25] MEDS: APIXABAN 5 MG TABLET PO SCH ×2 (10:02→21:57)
[2023-03-25] MEDS: NICOTINE 14 MG/24 HOURS TOPICAL PATCH TD SCH (10:02)
[2023-03-25] MEDS: GABAPENTIN 100 MG CAPSULE PO SCH ×2 (13:48→21:57)
[2023-03-25] MEDS: metoPROLOL SUCCINATE 25 MG TAB.SR.24H (FP) PO SCH (13:50)
[2023-03-25] MEDS: ASPIRIN 81 MG CHEWABLE TABLETS PO SCH (13:50)
[2023-03-25] MEDS: LOSARTAN POTASSIUM 25 MG TABLET PO SCH (13:51)
[2023-03-25 14:58] LABS: URINE APPEARANCE CLEAR; URINE BILIRUBIN NEGATIVE (NEGATIVE); URINE COLOR YELLOW; URINE GLUCOSE (UA) NEGATIVE (NEGATIVE); URINE KETONE NEGATIVE (NEGATIVE); URINE LEUK ESTERASE NEGATIVE (NEGATIVE); URINE NITRITE NEGATIVE (NEGATIVE); URINE PROTEIN TRACE (NEGATIVE)
[2023-03-25] MEDS: MELATONIN 5 MG TABLETS PO SCH (21:57)
[2023-03-25] MEDS: THIAMINE HCL 100 MG TABLET (FP) PO SCH (21:57)
[2023-03-25] MEDS: ATORVASTATIN CA 40 MG TABLET (FP) PO SCH (21:58)
[2023-03-25] MEDS: SENNOSIDES 8.6MG TABLET (FP) PO SCH (21:58)
[2023-03-26] MEDS: GABAPENTIN 100 MG CAPSULE PO SCH ×3 (06:40→21:23)
[2023-03-26] MEDS: methaDONE HCL 40 MG DISPERSABLE TABLET PO SCH (06:40)
[2023-03-26 08:49] VITALS: RESP 18
[2023-03-26] MEDS: NICOTINE 10 MG CARTRIDGE (INHALER) IH SCH ×2 (09:16→10:07)
[2023-03-26] MEDS: APIXABAN 5 MG TABLET PO SCH ×2 (10:06→21:24)
[2023-03-26] MEDS: ASPIRIN 81 MG CHEWABLE TABLETS PO SCH (10:06)
[2023-03-26] MEDS: metoPROLOL SUCCINATE 25 MG TAB.SR.24H (FP) PO SCH (10:06)
[2023-03-26] MEDS: LOSARTAN POTASSIUM 25 MG TABLET PO SCH (10:06)
[2023-03-26] MEDS: NICOTINE 14 MG/24 HOURS TOPICAL PATCH TD SCH (10:07)
[2023-03-26] MEDS: PRENATAL VITAMINS W/ FOLIC ACID TABLET (FP) PO SCH (10:07)
[2023-03-26] MEDS: THIAMINE HCL 100 MG TABLET (FP) PO SCH (21:23)
[2023-03-26] MEDS: MELATONIN 5 MG TABLETS PO SCH (21:23)
[2023-03-26] MEDS: ATORVASTATIN CA 40 MG TABLET (FP) PO SCH (21:24)
[2023-03-26] MEDS: SENNOSIDES 8.6MG TABLET (FP) PO SCH (21:24)
[2023-03-27] MEDS: GABAPENTIN 100 MG CAPSULE PO SCH ×3 (05:54→21:33)
[2023-03-27] MEDS: NICOTINE 10 MG CARTRIDGE (INHALER) IH PRN ×2 (05:54→16:30)
[2023-03-27] MEDS: methaDONE HCL 40 MG DISPERSABLE TABLET PO SCH (05:54)
[2023-03-27] MEDS: LOSARTAN POTASSIUM 25 MG TABLET PO SCH (10:27)
[2023-03-27] MEDS: ASPIRIN 81 MG CHEWABLE TABLETS PO SCH (10:27)
[2023-03-27] MEDS: APIXABAN 5 MG TABLET PO SCH ×2 (10:27→21:33)
[2023-03-27] MEDS: metoPROLOL SUCCINATE 25 MG TAB.SR.24H (FP) PO SCH (10:27)
[2023-03-27] MEDS: PRENATAL VITAMINS W/ FOLIC ACID TABLET (FP) PO SCH (10:27)
[2023-03-27] MEDS: NICOTINE 14 MG/24 HOURS TOPICAL PATCH TD SCH (10:28)
[2023-03-27] MEDS: BACITRACIN 0.9 GM PACKET TP SCH ×2 (15:36→21:34)
[2023-03-27] MEDS: INSULIN SLIDING SCALE (NOVOLOG) 1 VIAL SQ SCH (16:29)
[2023-03-27] MEDS ORDERED: INSULIN SLIDING SCALE (NOVOLOG) 1 VIAL SQ SCH (16:30)
[2023-03-27] MEDS: ATORVASTATIN CA 40 MG TABLET (FP) PO SCH (21:33)
[2023-03-27] MEDS: THIAMINE HCL 100 MG TABLET (FP) PO SCH (21:33)
[2023-03-27] MEDS: MELATONIN 5 MG TABLETS PO SCH (21:33)
[2023-03-27] MEDS: SENNOSIDES 8.6MG TABLET (FP) PO SCH (21:34)
[2023-03-27] MEDS ORDERED: BACITRACIN 0.9 GM PACKET TP SCH (22:00)
[2023-03-28] MEDS: NICOTINE 10 MG CARTRIDGE (INHALER) IH PRN (06:11)
[2023-03-28] MEDS: GABAPENTIN 100 MG CAPSULE PO SCH ×3 (06:11→21:46)
[2023-03-28] MEDS: methaDONE HCL 40 MG DISPERSABLE TABLET PO SCH (06:11)
[2023-03-28] MEDS: INSULIN SLIDING SCALE (NOVOLOG) 1 VIAL SQ SCH ×2 (07:06→16:36)
[2023-03-28] MEDS: BACITRACIN 0.9 GM PACKET TP SCH ×2 (09:35→21:47)
[2023-03-28] MEDS: NICOTINE 14 MG/24 HOURS TOPICAL PATCH TD SCH (09:36)
[2023-03-28] MEDS: PRENATAL VITAMINS W/ FOLIC ACID TABLET (FP) PO SCH (09:36)
[2023-03-28] MEDS: metoPROLOL SUCCINATE 25 MG TAB.SR.24H (FP) PO SCH (09:36)
[2023-03-28] MEDS: APIXABAN 5 MG TABLET PO SCH ×2 (09:36→21:47)
[2023-03-28] MEDS: ASPIRIN 81 MG CHEWABLE TABLETS PO SCH (09:36)
[2023-03-28] MEDS: LOSARTAN POTASSIUM 25 MG TABLET PO SCH (09:36)
[2023-03-28] MEDS: THIAMINE HCL 100 MG TABLET (FP) PO SCH (21:46)
[2023-03-28] MEDS: MELATONIN 5 MG TABLETS PO SCH (21:46)
[2023-03-28] MEDS: SENNOSIDES 8.6MG TABLET (FP) PO SCH (21:47)
[2023-03-28] MEDS: ATORVASTATIN CA 40 MG TABLET (FP) PO SCH (21:47)
[2023-03-29] MEDS: methaDONE HCL 40 MG DISPERSABLE TABLET PO SCH (05:57)
[2023-03-29] MEDS: GABAPENTIN 100 MG CAPSULE PO SCH (05:58)
[2023-03-29] MEDS: NICOTINE 10 MG CARTRIDGE (INHALER) IH PRN (06:00)
[2023-03-29 07:29] VITALS: BP 138/50; PULSE 75; TEMP 97.1
[2023-03-29] MEDS: INSULIN SLIDING SCALE (NOVOLOG) 1 VIAL SQ SCH (07:37)
[2023-03-29] MEDS: BACITRACIN 0.9 GM PACKET TP SCH (09:51)
[2023-03-29] MEDS: LOSARTAN POTASSIUM 25 MG TABLET PO SCH (09:51)
[2023-03-29] MEDS: ASPIRIN 81 MG CHEWABLE TABLETS PO SCH (09:51)
[2023-03-29] MEDS: PRENATAL VITAMINS W/ FOLIC ACID TABLET (FP) PO SCH (09:51)
[2023-03-29] MEDS: APIXABAN 5 MG TABLET PO SCH (09:52)
[2023-03-29] MEDS: metoPROLOL SUCCINATE 25 MG TAB.SR.24H (FP) PO SCH (09:52)
[2023-03-29] MEDS: NICOTINE 14 MG/24 HOURS TOPICAL PATCH TD SCH (09:53)
== END 2023-03-29 10:38 | disposition home or self-care (01) | DRG 773 ==
LOC: YASAS 17:30 → Y3W 22:35
PROVIDERS: ADMIT Allergy & Immunology; ATTEND Psychiatry & Neurology Pain Medicine
DX: F14.20 Cocaine dependence, uncomplicated (principal); F11.20 Opioid dependence, uncomplicated; F17.210 Nicotine dependence, cigarettes, uncomplicated; D68.59 Other primary thrombophilia; Z79.01 Long term (current) use of anticoagulants; K59.03 Drug induced constipation; L98.8 Other specified disorders of the skin and subcutaneous tissue; E11.9 Type 2 diabetes mellitus without complications; Z79.84 Long term (current) use of oral hypoglycemic drugs; Z86.19 Personal history of other infectious and parasitic diseases; Z99.89 Dependence on other enabling machines and devices
CPT/HCPCS: 36415; 80053; 81003; 82962; 85027; 86593; 86780; 86803; 87522; 87635; 93005; 93010

== ENCOUNTER 2023-07-03 15:10 | Inpatient (IN) | payer OTHER ==
[2023-07-03 17:21] VITALS: BMI 43.5
[2023-07-03] MEDS ORDERED: MAG HYDROX/AL HYDROX/SIMETH 30 ML UNIT-DOSE CUP PO PRN (18:41)
[2023-07-03] MEDS ORDERED: hydrOXYzine PAMOATE 25 MG CAPSULE (FP) PO PRN (18:41)
[2023-07-03] MEDS ORDERED: BISMUTH SUBSALICYLATE 524 MG/30 ML PO PRN (18:41)
[2023-07-03] MEDS ORDERED: IBUPROFEN 600 MG TABLET (FP) PO PRN (18:41)
[2023-07-03] MEDS ORDERED: IBUPROFEN 400 MG TABLET (FP) PO PRN (18:41)
[2023-07-03] MEDS ORDERED: ONDANSETRON *ODT* 4 MG TABLET SL PRN (18:41)
[2023-07-03] MEDS ORDERED: NALOXONE HCL 0.4 MG/ML VIAL IM PRN (18:41)
[2023-07-03] MEDS ORDERED: MAGNESIUM HYDROX 2400MG/30ML ORAL SUSPENSION 30 ML CUP PO PRN (18:41)
[2023-07-03] MEDS ORDERED: BENZOCAINE/MENTHOL (CHLORASEPTIC ) LOZENGE MM PRN (18:41)
[2023-07-03] MEDS ORDERED: POLYETHYLENE GLYCOL (HEALTHYLAX) 3350 17 GM PACKET PO PRN (18:41)
[2023-07-03] MEDS ORDERED: LOPERAMIDE HCL 2 MG CAPSULE PO PRN (18:41)
[2023-07-03] MEDS ORDERED: DICYCLOMINE HCL 10 MG CAPSULE PO PRN (18:41)
[2023-07-03] MEDS ORDERED: guaiFENesin 600 MG TABLET.ER (FP) PO PRN (18:41)
[2023-07-03] MEDS ORDERED: METHOCARBAMOL 500 MG TABLET PO PRN (18:41)
[2023-07-03] MEDS ORDERED: BENZONATATE 200 MG CAPSULE PO PRN (18:41)
[2023-07-03] MEDS ORDERED: NALOXONE HCL (KLOXXADO) 8 MG SPRAY NS PRN (18:41)
[2023-07-03] MEDS: MELATONIN 5 MG TABLETS PO SCH (22:58)
[2023-07-03] MEDS: ATORVASTATIN CA 40 MG TABLET (FP) PO SCH (22:58)
[2023-07-03] MEDS: APIXABAN 5 MG TABLET PO SCH (22:58)
[2023-07-03] MEDS: THIAMINE HCL 100 MG TABLET (FP) PO SCH (22:58)
[2023-07-04] MEDS ORDERED: diazePAM 5 MG TABLET PO PRN (09:42)
[2023-07-04] MEDS: metoPROLOL SUCCINATE 25 MG TAB.SR.24H (FP) PO SCH (10:05)
[2023-07-04] MEDS: PRENATAL VITAMINS W/ FOLIC ACID TABLET (FP) PO SCH (10:05)
[2023-07-04] MEDS: diazePAM 5 MG TABLET PO SCH ×3 (10:05→22:37)
[2023-07-04] MEDS: APIXABAN 5 MG TABLET PO SCH ×2 (10:05→22:36)
[2023-07-04] MEDS: LOSARTAN POTASSIUM 25 MG TABLET PO SCH (10:05)
[2023-07-04] MEDS: methaDONE HCL 40 MG DISPERSABLE TABLET PO SCH (10:20)
[2023-07-04] MEDS: ACETAMINOPHEN 325 MG TABLET (FP) PO PRN ×2 (10:23→17:30)
[2023-07-04 10:38] LABS: HEMATOCRIT 38.3 % (35.4-49); HEMOGLOBIN 12.8 GM/dL (11.7-16.9); MCH 28.1 pg (25.7-33.7); MCHC 33.3 g/dl (32.0-35.9); MEAN CELL VOLUME 84.4 fl (80-96); PLATELET COUNT 190 10^3/uL (134-434); RBC 4.54 M/mm3 (4.00-5.60); RDW 14.8 % (11.9-15.9); WHITE BLOOD COUNT 8.2 K/mm3 (4.0-10.0)
[2023-07-04 11:33] LABS: CHLORIDE 99 mmol/L (98-107); POTASSIUM 4.8 mmol/L (3.5-5.1); SODIUM 133 mmol/L (136-145)
[2023-07-04 11:37] LABS: ALBUMIN 3.4 g/dl (3.4-5.0); ANION GAP 9 MMOL/L (8-16); BLOOD UREA NITROGEN 18.6 mg/dL (7-18); CALCIUM 8.8 mg/dL (8.5-10.1); CO2 25 mmol/L (21-32)
[2023-07-04 11:40] LABS: CREATININE 1.4 mg/dL (0.55-1.3); SGOT/AST 21 U/L (15-37); SGPT/ALT 25 U/L (13-61)
[2023-07-04 11:42] LABS: ALK PHOS 161 U/L (45-117); BILIRUBIN,TOTAL 0.7 mg/dL (0.2-1); TOT PROT 7.8 g/dl (6.4-8.2)
[2023-07-04] MEDS: BENZOCAINE 20 % GEL TUBE MM PRN ×2 (13:32→22:57)
[2023-07-04 14:46] LABS: GLUCOSE,RANDOM 540 mg/dL (74-106)
[2023-07-04] MEDS ORDERED: INSULIN (NOVOLOG) ASPART 100 UNITS/ML 10ML VIAL SQ ONE ×2 (15:12→16:50)
[2023-07-04] MEDS ORDERED: INSULIN SLIDING SCALE (NOVOLOG) 1 VIAL SQ ONE (15:15)
[2023-07-04] MEDS: INSULIN SLIDING SCALE (NOVOLOG) 1 VIAL SQ SCH (17:29)
[2023-07-04] MEDS: ATORVASTATIN CA 40 MG TABLET (FP) PO SCH (22:36)
[2023-07-04] MEDS: MELATONIN 5 MG TABLETS PO SCH (22:36)
[2023-07-04] MEDS: THIAMINE HCL 100 MG TABLET (FP) PO SCH (22:36)
[2023-07-05] MEDS: methaDONE HCL 40 MG DISPERSABLE TABLET PO SCH (05:54)
[2023-07-05] MEDS: diazePAM 5 MG TABLET PO SCH ×4 (05:54→22:37)
[2023-07-05] MEDS: INSULIN SLIDING SCALE (NOVOLOG) 1 VIAL SQ SCH ×3 (06:58→17:06)
[2023-07-05] MEDS: metoPROLOL SUCCINATE 25 MG TAB.SR.24H (FP) PO SCH (10:04)
[2023-07-05] MEDS: PRENATAL VITAMINS W/ FOLIC ACID TABLET (FP) PO SCH (10:04)
[2023-07-05] MEDS: APIXABAN 5 MG TABLET PO SCH ×2 (10:04→22:36)
[2023-07-05] MEDS: LOSARTAN POTASSIUM 25 MG TABLET PO SCH (10:06)
[2023-07-05] MEDS: ACETAMINOPHEN 325 MG TABLET (FP) PO PRN (17:09)
[2023-07-05 19:44] VITALS: BP 126/70; PULSE 80; RESP 18; TEMP 97.7
[2023-07-05] MEDS ORDERED: INSULIN (LEVEMIR) 100 UNITS/ML UNITS SQ SCH (22:00)
[2023-07-05] MEDS: ATORVASTATIN CA 40 MG TABLET (FP) PO SCH (22:37)
[2023-07-05] MEDS: MELATONIN 5 MG TABLETS PO SCH (22:37)
[2023-07-05] MEDS: THIAMINE HCL 100 MG TABLET (FP) PO SCH (22:37)
[2023-07-06] MEDS: methaDONE HCL 40 MG DISPERSABLE TABLET PO SCH (06:00)
[2023-07-06] MEDS ORDERED: diazePAM 5 MG TABLET PO SCH (06:00)
[2023-07-06] MEDS: INSULIN SLIDING SCALE (NOVOLOG) 1 VIAL SQ SCH (07:10)
[2023-07-07] MEDS ORDERED: diazePAM 5 MG TABLET PO SCH (06:00)
[2023-07-08] MEDS ORDERED: diazePAM 5 MG TABLET PO ONE (06:00)
== END 2023-07-05 23:55 | disposition short-term general hospital (02) | DRG 773 ==
LOC: YASAS 15:10 → Y3N 19:36
PROVIDERS: ADMIT Allergy & Immunology; ATTEND Surgery
PROC: HZ2ZZZZ Detoxification Services for Substance Abuse Treatment (ICD-10-PCS; principal; 2023-07-03)
DX: F10.230 Alcohol dependence with withdrawal, uncomplicated (principal); F11.20 Opioid dependence, uncomplicated; E11.65 Type 2 diabetes mellitus with hyperglycemia; Z79.4 Long term (current) use of insulin; Z79.84 Long term (current) use of oral hypoglycemic drugs; E66.01 Morbid (severe) obesity due to excess calories; Z68.41 Body mass index [BMI] 40.0-44.9, adult; Z89.512 Acquired absence of left leg below knee; Z86.718 Personal history of other venous thrombosis and embolism
CPT/HCPCS: 36415; 80053; 82962; 85027; 86593; 86780; 87635

== ENCOUNTER 2023-07-05 19:48 | Observation (INO) | payer OTHER ==
[2023-07-05] MEDS ORDERED: LACTATED RINGERS SOLUTION 1000 ML INFUS.BAG IV ONE ×2 (20:14→22:06)
[2023-07-05] MEDS ORDERED: ACETAMINOPHEN 325 MG TABLET (FP) PO ONE (20:37)
[2023-07-05] MEDS ORDERED: ACETAMINOPHEN 325 MG TABLET (FP) ONE (20:46)
[2023-07-05 21:34] LABS: VENOUS BASE EXCESS 2.3 mmol/L (-2-2); VENOUS O2 SATURATION 66.2 % (70-80); VENOUS PCO2 54.1 mmHg (38-52); VENOUS PH 7.349 (7.310-7.410)
[2023-07-05 21:41] LABS: BASO % 0.9 % (0-2.0); EOS % 3.2 % (0-4.5); HEMATOCRIT 38.8 % (35.4-49); HEMOGLOBIN 13.3 GM/dL (11.7-16.9); LYMPH % 33.5 % (8-40); MCH 28.5 pg (25.7-33.7); MCHC 34.4 g/dl (32.0-35.9); MEAN PLT VOLUME 8.7 fl (7.5-11.1); MONO % 6.5 % (3.8-10.2); NEUT % 55.9 % (42.8-82.8); PLATELET COUNT 243 10^3/uL (134-434); RBC 4.68 M/mm3 (4.00-5.60); RDW 14.6 % (11.9-15.9); WHITE BLOOD COUNT 9.3 K/mm3 (4.0-10.0)
[2023-07-05 21:41] LABS: PH,URINE 6.5 (5.0-8.0); URINE APPEARANCE CLEAR; URINE BILIRUBIN NEGATIVE (NEGATIVE); URINE COLOR YELLOW; URINE GLUCOSE (UA) 3+ (NEGATIVE); URINE KETONE NEGATIVE (NEGATIVE); URINE LEUK ESTERASE NEGATIVE (NEGATIVE); URINE NITRITE NEGATIVE (NEGATIVE); URINE PROTEIN NEGATIVE (NEGATIVE); URINE UROBILINOGEN 0.2 mg/dL (0.2-1.0)
[2023-07-05 21:56] LABS: CHLORIDE 94 mmol/L (98-107); POTASSIUM 4.5 mmol/L (3.5-5.1); SODIUM 132 mmol/L (136-145)
[2023-07-05 21:58] LABS: CALCIUM 8.8 mg/dL (8.5-10.1)
[2023-07-05 21:59] LABS: ALBUMIN 3.3 g/dl (3.4-5.0); ANION GAP 7 MMOL/L (8-16); BLOOD UREA NITROGEN 17.6 mg/dL (7-18); CO2 30 mmol/L (21-32); MAGNESIUM 1.8 mg/dL (1.8-2.4)
[2023-07-05 22:02] LABS: CREATININE 1.4 mg/dL (0.55-1.3); SGOT/AST 16 U/L (15-37); SGPT/ALT 36 U/L (13-61)
[2023-07-05 22:04] LABS: BILIRUBIN,TOTAL 0.2 mg/dL (0.2-1); TOT PROT 7.7 g/dl (6.4-8.2)
[2023-07-05 22:05] LABS: ALK PHOS 173 U/L (45-117)
[2023-07-05] MEDS ORDERED: INSULIN REGULAR HUMAN 100 UNITS/ML *VIAL IVPUSH ONE (22:05)
[2023-07-05 22:17] LABS: GLUCOSE,RANDOM 636 mg/dL (74-106)
[2023-07-06] MEDS ORDERED: diazePAM 5 MG TABLET PO PRN (00:34)
[2023-07-06] MEDS ORDERED: diazePAM 5 MG TABLET PO ONE (00:34)
[2023-07-06] MEDS ORDERED: INSULIN REGULAR HUMAN 100 UNITS/ML *VIAL IVPUSH ONE (01:19)
[2023-07-06] MEDS ORDERED: diazePAM 5 MG TABLET ONE (01:43)
[2023-07-06] MEDS ORDERED: INSULIN REGULAR HUMAN 100 UNITS/ML *VIAL ONE (01:43)
[2023-07-06] MEDS: LACTATED RINGERS SOLUTION 1,000 ML/1,000 ML INFUS.BAG IV SCH (02:00)
[2023-07-06 04:22] VITALS: BMI 28.5
[2023-07-06] MEDS: diazePAM 5 MG TABLET PO SCH ×3 (05:25→17:45)
[2023-07-06] MEDS ORDERED: INSULIN (NOVOLOG) ASPART 100 UNITS/ML 10ML VIAL ONE (05:50)
[2023-07-06] MEDS: INSULIN SLIDING SCALE (NOVOLOG) 1 VIAL SQ SCH ×4 (06:29→22:53)
[2023-07-06] MEDS: methaDONE HCL 40 MG DISPERSABLE TABLET PO SCH (08:49)
[2023-07-06 09:19] LABS: HEMATOCRIT 36.3 % (35.4-49); HEMOGLOBIN 12.5 GM/dL (11.7-16.9); MCH 28.5 pg (25.7-33.7); MCHC 34.5 g/dl (32.0-35.9); MEAN CELL VOLUME 82.5 fl (80-96); MEAN PLT VOLUME 8.6 fl (7.5-11.1); PLATELET COUNT 221 10^3/uL (134-434); RDW 14.5 % (11.9-15.9)
[2023-07-06 09:41] LABS: POTASSIUM 3.7 mmol/L (3.5-5.1)
[2023-07-06] MEDS: FOLIC ACID 1 MG TABLET (FP) PO SCH (09:46)
[2023-07-06] MEDS: THIAMINE HCL 100 MG TABLET (FP) PO SCH (09:46)
[2023-07-06] MEDS: APIXABAN 5 MG TABLET PO SCH ×2 (09:46→21:32)
[2023-07-06 09:50] LABS: BLOOD UREA NITROGEN 16.3 mg/dL (7-18); CALCIUM 8.3 mg/dL (8.5-10.1)
[2023-07-06 09:51] LABS: ALBUMIN 2.9 g/dl (3.4-5.0); MAGNESIUM 1.6 mg/dL (1.8-2.4)
[2023-07-06 09:53] LABS: PHOSPHOROUS 3.4 mg/dL (2.5-4.9)
[2023-07-06 09:54] LABS: CREATININE 1.2 mg/dL (0.55-1.3)
[2023-07-06 09:55] LABS: BILIRUBIN,TOTAL 0.3 mg/dL (0.2-1); TOT PROT 6.9 g/dl (6.4-8.2)
[2023-07-06] MEDS ORDERED: INSULIN (LEVEMIR) 100 UNITS/ML UNITS SQ SCH ×2 (10:30→17:31)
[2023-07-06] MEDS ORDERED: INSULIN (LEVEMIR) 100 UNITS/ML UNITS SQ ONE ×2 (10:51→19:03)
[2023-07-06] MEDS: diazePAM 5 MG TABLET PO ONE ×2 (10:55→21:37)
[2023-07-06] MEDS: MAGNESIUM OXIDE 400 MG TABLET (FP) PO SCH ×2 (11:09→21:31)
[2023-07-06] MEDS ORDERED: INSULIN (NOVOLOG) ASPART 100 UNITS/ML 10ML VIAL SQ ONE ×2 (17:30→18:35)
[2023-07-06] MEDS: ATORVASTATIN CA 40 MG TABLET (FP) PO SCH (21:32)
[2023-07-06] MEDS: INSULIN (LEVEMIR) 100 UNITS/ML UNITS SQ SCH (22:38)
[2023-07-07] MEDS: LACTATED RINGERS SOLUTION 1,000 ML/1,000 ML INFUS.BAG IV SCH (01:41)
[2023-07-07] MEDS: diazePAM 5 MG TABLET PO SCH ×3 (05:18→22:31)
[2023-07-07] MEDS: methaDONE HCL 40 MG DISPERSABLE TABLET PO SCH (05:36)
[2023-07-07] MEDS: INSULIN (LEVEMIR) 100 UNITS/ML UNITS SQ SCH ×2 (06:50→22:33)
[2023-07-07] MEDS: INSULIN SLIDING SCALE (NOVOLOG) 1 VIAL SQ SCH ×4 (06:50→22:32)
[2023-07-07 09:19] LABS: EOS % 3.4 % (0-4.5); HEMATOCRIT 37.9 % (35.4-49); HEMOGLOBIN 12.5 GM/dL (11.7-16.9); LYMPH % 43.9 % (8-40); MEAN CELL VOLUME 84.7 fl (80-96); MEAN PLT VOLUME 9.2 fl (7.5-11.1); MONO % 4.6 % (3.8-10.2); NEUT % 47.1 % (42.8-82.8); PLATELET COUNT 198 10^3/uL (134-434); RBC 4.47 M/mm3 (4.00-5.60); RDW 13.8 % (11.9-15.9); WHITE BLOOD COUNT 7.5 K/mm3 (4.0-10.0)
[2023-07-07 09:33] LABS: POTASSIUM 4.1 mmol/L (3.5-5.1)
[2023-07-07 09:42] LABS: CALCIUM 8.3 mg/dL (8.5-10.1)
[2023-07-07 09:43] LABS: ALBUMIN 2.8 g/dl (3.4-5.0); BLOOD UREA NITROGEN 17.9 mg/dL (7-18); MAGNESIUM 1.6 mg/dL (1.8-2.4)
[2023-07-07 09:46] LABS: CREATININE 1.2 mg/dL (0.55-1.3)
[2023-07-07 09:47] LABS: BILIRUBIN,TOTAL 0.3 mg/dL (0.2-1); TOT PROT 6.9 g/dl (6.4-8.2)
[2023-07-07] MEDS: APIXABAN 5 MG TABLET PO SCH ×2 (10:58→22:31)
[2023-07-07] MEDS: metoPROLOL SUCCINATE 25 MG TAB.SR.24H (FP) PO SCH (10:58)
[2023-07-07] MEDS: FOLIC ACID 1 MG TABLET (FP) PO SCH (10:58)
[2023-07-07] MEDS: MAGNESIUM OXIDE 400 MG TABLET (FP) PO SCH ×3 (10:58→22:31)
[2023-07-07] MEDS: THIAMINE HCL 100 MG TABLET (FP) PO SCH (10:58)
[2023-07-07] MEDS ORDERED: INSULIN (NOVOLOG) ASPART 100 UNITS/ML 10ML VIAL ONE ×3 (11:43→20:58)
[2023-07-07] MEDS: ACETAMINOPHEN 325 MG TABLET (FP) PO PRN (18:28)
[2023-07-07] MEDS: ATORVASTATIN CA 40 MG TABLET (FP) PO SCH (22:31)
[2023-07-08] MEDS: ACETAMINOPHEN 325 MG TABLET (FP) PO PRN ×2 (01:47→10:24)
[2023-07-08] MEDS: diazePAM 5 MG TABLET PO SCH ×3 (06:36→17:16)
[2023-07-08] MEDS: methaDONE HCL 40 MG DISPERSABLE TABLET PO SCH (06:37)
[2023-07-08] MEDS: INSULIN (LEVEMIR) 100 UNITS/ML UNITS SQ SCH (06:49)
[2023-07-08] MEDS: INSULIN SLIDING SCALE (NOVOLOG) 1 VIAL SQ SCH ×3 (06:50→17:16)
[2023-07-08 09:15] LABS: BASO % 1.2 % (0-2.0); EOS % 3.9 % (0-4.5); HEMATOCRIT 38.6 % (35.4-49); HEMOGLOBIN 12.8 GM/dL (11.7-16.9); LYMPH % 44.4 % (8-40); MCH 28.2 pg (25.7-33.7); MCHC 33.2 g/dl (32.0-35.9); MEAN CELL VOLUME 84.9 fl (80-96); MEAN PLT VOLUME 8.7 fl (7.5-11.1); MONO % 5.1 % (3.8-10.2); NEUT % 45.4 % (42.8-82.8); PLATELET COUNT 228 10^3/uL (134-434); RBC 4.55 M/mm3 (4.00-5.60); RDW 14.4 % (11.9-15.9); WHITE BLOOD COUNT 7.7 K/mm3 (4.0-10.0)
[2023-07-08 09:42] LABS: POTASSIUM 4.2 mmol/L (3.5-5.1)
[2023-07-08 09:44] LABS: CALCIUM 8.4 mg/dL (8.5-10.1)
[2023-07-08 09:45] LABS: BLOOD UREA NITROGEN 14.9 mg/dL (7-18); MAGNESIUM 1.6 mg/dL (1.8-2.4)
[2023-07-08 09:48] LABS: CREATININE 1.1 mg/dL (0.55-1.3)
[2023-07-08 09:49] LABS: BILIRUBIN,TOTAL 0.4 mg/dL (0.2-1); TOT PROT 7.1 g/dl (6.4-8.2)
[2023-07-08] MEDS: metoPROLOL SUCCINATE 25 MG TAB.SR.24H (FP) PO SCH (10:18)
[2023-07-08] MEDS: THIAMINE HCL 100 MG TABLET (FP) PO SCH (10:18)
[2023-07-08] MEDS: APIXABAN 5 MG TABLET PO SCH (10:18)
[2023-07-08] MEDS: FOLIC ACID 1 MG TABLET (FP) PO SCH (10:18)
[2023-07-08] MEDS: MAGNESIUM OXIDE 400 MG TABLET (FP) PO SCH (10:18)
[2023-07-08] MEDS ORDERED: INSULIN (LEVEMIR) 100 UNITS/ML UNITS SQ SCH (10:29)
[2023-07-08] MEDS ORDERED: INSULIN (NOVOLOG) ASPART 100 UNITS/ML 10ML VIAL SQ ONE ×2 (12:26→13:45)
[2023-07-08] MEDS ORDERED: INSULIN (NOVOLOG) ASPART 100 UNITS/ML 10ML VIAL ONE (12:27)
[2023-07-08 15:19] VITALS: RESP 20
[2023-07-08 16:07] VITALS: BP 117/75; PULSE 64; TEMP 97.8
== END 2023-07-08 17:16 | disposition other institution (70) ==
LOC: JER 19:48 → JERBED 22:04 → J8W 07-06 02:53
PROVIDERS: ADMIT Internal Medicine; ATTEND Nurse Practitioner Acute Care
PROC: 3E013VG Introduction of Insulin into Subcutaneous Tissue, Percutaneous Approach (ICD-10-PCS; principal; 2023-07-05)
PROC: 3E033VG Introduction of Insulin into Peripheral Vein, Percutaneous Approach (ICD-10-PCS; 2023-07-05)
PROC: 3E0337Z Introduction of Electrolytic and Water Balance Substance into Peripheral Vein, Percutaneous Approach (ICD-10-PCS; 2023-07-05)
DX: E11.65 Type 2 diabetes mellitus with hyperglycemia (principal); F11.20 Opioid dependence, uncomplicated; E87.1 Hypo-osmolality and hyponatremia; I10 Essential (primary) hypertension; E78.5 Hyperlipidemia, unspecified; Z86.718 Personal history of other venous thrombosis and embolism; Z79.01 Long term (current) use of anticoagulants; F19.10 Other psychoactive substance abuse, uncomplicated; N17.9 Acute kidney failure, unspecified; E66.9 Obesity, unspecified; I87.8 Other specified disorders of veins; F17.210 Nicotine dependence, cigarettes, uncomplicated; Z91.013 Allergy to seafood; Z91.018 Allergy to other foods; A53.0 Latent syphilis, unspecified as early or late
CPT/HCPCS: 36415; 80053; 81003; 82010; 82803; 82962; 83036; 83735; 84100; 84443; 85025; 85027; 93005; 93010; 96361; 96372; 96374; 96376; 99285-25; G0378